=== PATIENT | female | born 1985 | race Two or more races ===

== ENCOUNTER 2017-04-21 23:14 | Emergency (ER) | payer SELFPAY ==
[2017-04-21 23:23] VITALS: BP 100/66; PULSE 85; RESP 18; TEMP 98; O2SAT 100
--- NOTE | 2017-04-21 23:38 | C.PDOC ---
History Of Present Illness 31 y/o F brought by police who picked patient up at her home emotionally upset. Patient states she visited her family today and had a fight with her younger sister. She does not an abrasion to the L side of her face. 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 The patient states she did not wish to come to the ER and did struggle against the officer. She denies HI or SI or hallucinations. Denies any psychiatric disease or suicide attempt in the past. She also notes a contusion to her L lower back, unsure when she suffered it. Time Seen by Provider: 04/21/17 23:20 Chief Complaint (Nursing): Psychiatric Evaluation Past Medical History Vital Signs: Last Vital Signs Temp 98 F 04/21/17 23:22 Pulse 85 04/21/17 23:22 Resp 18 04/21/17 23:22 BP 100/66 04/21/17 23:22 Pulse Ox 100 04/21/17 23:40 Family History: States: No Known Family Hx - Social History Hx Alcohol Use: Yes Hx Substance Use: Yes - Immunization History Hx Tetanus Toxoid Vaccination: No Hx Influenza Vaccination: No Hx Pneumococcal Vaccination: No Review Of Systems Except As Marked, All Systems Reviewed And Found Negative. Cardiovascular: Negative for: Chest Pain Respiratory: Negative for: Shortness of Breath Physical Exam - Physical Exam Additional Physical Exam Comments: Constitutional: No acute distress. Head: Normocephalic. Atraumatic. Eyes: PERRL. ENT: Moist mucous membranes. Neck: Supple. Cardiovascular: Regular rate. Radial pulses 2+ bilaterally. Chest: No tenderness. Respiratory: Clear to auscultation bilaterally. GI: Soft. Nontender. Nondistended. Back: No midline tenderness. Musculoskeletal: No tenderness or swelling of extremities. Skin: Mild linear abrasion to L side of face. Tender, small contusion to L lower back. Neurologic: Alert, no focal deficit. Psych: Normal affect. ED Course And Treatment O2 Sat by Pulse Oximetry: 100 Medical Decision Making Medical Decision Making: Patient is reasonable, has no SI/HI/hallucinations. No indication for further evaluation in ER. Discharge home, informed patient that she may return to the ER at any time for any reason. Disposition - Disposition Referrals: Non [facility] Provider, [Primary Care Provider] - Disposition: HOME/ ROUTINE Disposition Time: 23:37 Condition: STABLE Instructions: Depression (ED) - Clinical Impression Clinical Impression: Emotional upset
== END 2017-04-21 23:46 | disposition home or self-care (01) ==
LOC: C.ER 23:14 → SUPCPDRO 23:14 → C.ER 23:46
DX: F48.8 Other specified nonpsychotic mental disorders (principal)

== ENCOUNTER 2017-09-07 12:00 | Emergency (ER) | payer SELFPAY ==
[2017-09-07 12:16] VITALS: RESP 20
[2017-09-07] MEDS ORDERED: Albuterol-Ipratrop 3 mg / 0.5 (3 ml) UD INH STA (12:50)
--- NOTE | 2017-09-07 12:54 | C.PDOC ---
History Of Present Illness 31 y/o female with hx asthma, c/o rhinorrhea, congestion x few days with cough with yellow green sputum and chest tightness today. pt ran out of her inhaler. pt had temp to 99.9 at home, took Tylenol 2 hours prior to arrival in ED. pt on day 3 of zsck. Time Seen by Provider: 09/07/17 12:23 Chief Complaint (Nursing): Cough, Cold, Congestion History Per: Patient History/Exam Limitations: no limitations Onset/Duration Of Symptoms: Days Current Symptoms Are (Timing): Still Present Sick Contacts (Context): None Associated Symptoms: Fever, Chills, Cough, Myalgias, Nasal Congestion Past Medical History Reviewed: Historical Data, Nursing Documentation, Vital Signs Vital Signs: Last Vital Signs Temp 98.1 F 09/07/17 14:06 Pulse 94 H 09/07/17 14:06 Resp 20 09/07/17 14:06 BP 115/71 09/07/17 14:06 Pulse Ox 100 09/07/17 22:16 - Medical History PMH: Asthma Family History: States: Unknown Family Hx - Social History Hx Tobacco Use: No Hx Alcohol Use: Yes Hx Substance Use: Yes - Immunization History Hx Tetanus Toxoid Vaccination: No Hx Influenza Vaccination: No Hx Pneumococcal Vaccination: No Review Of Systems Constitutional: Positive for: Fever (99.9) ENT: Positive for: Nose Discharge, Nose Congestion Cardiovascular: Negative for: Chest Pain Respiratory: Positive for: Cough, Shortness of Breath, Wheezing Gastrointestinal: Negative for: Vomiting, Abdominal Pain Skin: Negative for: Rash Neurological: Negative for: Weakness, Numbness Physical Exam - Physical Exam Appears: Non-toxic, Other (uncomfortable, harsh phlegmy cough) Skin: Warm, Dry Head: Atraumatic, Normacephalic Eye(s): bilateral: Normal Inspection, PERRL, EOMI Oral Mucosa: Moist Tongue: Normal Appearing Lips: Normal Appearing Gingiva: Normal Appearing Throat: No Erythema, No Exudate Neck: Normal ROM, Supple Chest: Symmetrical, No Deformity, No Tenderness Cardiovascular: Rhythm Regular, No Murmur Respiratory: Rhonchi (scattered, lower lr), Wheezing (upper lr, expiratory) Gastrointestinal/Abdominal: Soft, No Tenderness Neurological/Psych: Oriented x3, Normal Speech, Normal Cognition ED Course And Treatment O2 Sat by Pulse Oximetry: 100 Medical Decision Making Medical Decision Making: no intubations, max pf unk. pf 370 prior to treatments. 154 pm pt feeling much better after nebulizer tx, pf now 410. lungs cta b/l. pt feels ready to go home, will d/c if not sob after walking around ed. pt already taking z-reymundo, on day 3. Disposition Counseled Patient/Family Regarding: Diagnosis, Need For Followup, Rx Given - Disposition Referrals: [facility] [Outside] Disposition: HOME/ ROUTINE Disposition Time: 13:59 Condition: IMPROVED Additional Instructions: Please finish zpak, take steroids as prescribed and use inhaler 2 puffs every 6 hours as needed. Follow up in clinic. Return to ER for any worse symptoms. Prescriptions: Albuterol HFA [Ventolin HFA 90 mcg/actuation (8 g)] 2 puff IH Q6 #1 inhaler predniSONE [predniSONE Tab] 2 tab PO DAILY #8 tab Instructions: Upper Respiratory Infection (ED) Forms: General Discharge Instructions, [facility] (Chinese), Work Excuse - Clinical Impression Clinical Impression: Upper respiratory infection
[2017-09-07] MEDS ORDERED: Albuterol-Ipratrop 3 mg / 0.5 (3 ml) UD ONE (13:09)
[2017-09-07 14:07] VITALS: BP 115/71; PULSE 94; TEMP 98.1
[2017-09-07 22:16] VITALS: O2SAT 100
== END 2017-09-07 14:07 | disposition home or self-care (01) ==
LOC: C.ER 12:00
DX: J06.9 Acute upper respiratory infection, unspecified (principal)